=== PATIENT | male | born 2000 | race Two or more races ===

== ENCOUNTER 2019-12-02 22:36 | Emergency (ER) | payer SELFPAY ==
[~2019-12-02] VITALS: Ht 175.3 cm; Wt 75.0 kg
[2019-12-03 00:30] VITALS: BP 118/75
== END 2019-12-03 00:57 | disposition home or self-care (01) ==
LOC: EMS 22:38
DX: S60.211A Contusion of right wrist, initial encounter (principal); V47.5XXA Car driver injured in collision with fixed or stationary object in traffic accident, initial encounter; Y93.89 Activity, other specified; Y92.89 Other specified places as the place of occurrence of the external cause; Y99.8 Other external cause status
CPT/HCPCS: 72040

== ENCOUNTER 2022-12-02 00:15 | Emergency (ER) | payer SELFPAY ==
[~2022-12-02] VITALS: Ht 170.2 cm; Wt 75.0 kg
[2022-12-02] MEDS ORDERED: IBUP-1492 PO (00:18)
[2022-12-02] MEDS ORDERED: AMOX500C2 PO (00:18)
[2022-12-02 00:19] VITALS: BP 115/75
[2022-12-02] MEDS ORDERED: BENZ9GEL2 TP (02:27)
== END 2022-12-02 02:55 | disposition home or self-care (01) ==
LOC: EMS 00:20
DX: K13.79 Other lesions of oral mucosa (principal); K05.10 Chronic gingivitis, plaque induced
CPT/HCPCS: 99282; Z7502